=== PATIENT | male | born 1955 | race Caucasian/White ===

== ENCOUNTER 2023-02-26 15:08 | Outpatient (CLI) | payer MEDICARE | END 2023-02-26 15:09 | disposition home or self-care (01) | LOC: BICCT 15:08 | PROVIDERS: ATTEND Surgery | DX: M47.22 Other spondylosis with radiculopathy, cervical region (principal); Z98.890 Other specified postprocedural states | CPT/HCPCS: 72050; 72125 ==

== ENCOUNTER 2023-09-09 14:30 | Inpatient (IN) | payer MEDICARE ==
[2023-09-09 15:34] VITALS: BMI 27.6
[2023-09-16] MEDS ORDERED: Sodium Chloride 0.9% 100 ML ONE ×2 (08:53→12:49)
[2023-09-16] MEDS ORDERED: CEFAZOLIN 2 GM VIAL ONE ×2 (08:53→12:49)
[2023-09-16] MEDS ORDERED: fentaNYL PF 100 MCG/2 ML SYRINGE ONE (09:02)
[2023-09-16] MEDS ORDERED: Lidocaine 2% PF 5 ML VIAL ONE (09:02)
[2023-09-16] MEDS ORDERED: PROPOFOL 20 ML ONE (09:02)
[2023-09-16] MEDS ORDERED: Rocuronium Bromide 10 MG/ML (10ML VIAL) ONE (09:06)
[2023-09-16] MEDS ORDERED: Ondansetron PF 4 MG/2 ML Vial ONE (09:06)
[2023-09-16] MEDS ORDERED: Ketorolac Tromethamine 30 MG (1 mL) VIAL ONE (09:06)
[2023-09-16] MEDS ORDERED: Dexamethasone 20 MG/5 ML VIAL ONE (09:06)
[2023-09-16] MEDS ORDERED: ePHEDrine Sulfate 50 MG/10 ML VIAL ONE (09:20)
[2023-09-16] MEDS ORDERED: HYDROmorphone 2 MG/ML VIAL ONE (09:28)
[2023-09-16] MEDS ORDERED: SUGAMMADEX SODIUM 200 MG/2 ML VIAL ONE (10:30)
== END 2023-09-16 14:19 | disposition home or self-care (01) | DRG 472 ==
LOC: SURG A 09-16 07:10
PROVIDERS: ADMIT Neurological Surgery; ATTEND Neurological Surgery
PROC: 0RG10A0 Fusion of Cervical Vertebral Joint with Interbody Fusion Device, Anterior Approach, Anterior Column, Open Approach (ICD-10-PCS; principal; 2023-09-16)
PROC: 0RB30ZZ Excision of Cervical Vertebral Disc, Open Approach (ICD-10-PCS; 2023-09-16)
PROC: 01N10ZZ Release Cervical Nerve, Open Approach (ICD-10-PCS; 2023-09-16)
DX: M48.02 Spinal stenosis, cervical region (principal); M47.12 Other spondylosis with myelopathy, cervical region; G89.29 Other chronic pain; I10 Essential (primary) hypertension; Z88.8 Allergy status to other drugs, medicaments and biological substances; Z85.46 Personal history of malignant neoplasm of prostate; Z98.890 Other specified postprocedural states
CPT/HCPCS: C1713; J1100; J1170; J1885; J2001; J2405; J2704; J3490

== ENCOUNTER 2023-09-09 14:31 | Outpatient (CLI) | payer MEDICARE | END 2023-09-09 14:32 | disposition home or self-care (01) | LOC: LABBT 14:31 | PROVIDERS: ATTEND Neurological Surgery | DX: Z01.810 Encounter for preprocedural cardiovascular examination (principal); M47.812 Spondylosis without myelopathy or radiculopathy, cervical region | CPT/HCPCS: 93005; 93010 ==

== ENCOUNTER 2024-01-18 11:42 | Outpatient (CLI) | payer MEDICARE | END 2024-01-18 11:43 | disposition home or self-care (01) | LOC: BICULT 11:42 | PROVIDERS: ATTEND Nurse Practitioner Family | DX: S86.812A Strain of other muscle(s) and tendon(s) at lower leg level, left leg, initial encounter (principal); M25.462 Effusion, left knee | CPT/HCPCS: 76882 ==

== ENCOUNTER 2025-07-18 12:14 | Outpatient (CLI) | payer MEDICARE ==
[2025-07-18 13:53] LABS: #Basophils 0.03 10x3/uL (0.0-0.2); #Eosinophils 0.16 10x3/uL (0.0-0.7); #Monocytes 0.59 10x3/uL (0.11-0.59); #Neutrophils 3.24 10x3/uL (1.40-6.50); %Basophils 0.5 % (0.0-1.0); %Eosinophils 2.9 % (0.0-10.0); %Lymphocytes 26.7 % (21.0-51.0); %Monocytes 10.7 % (0.0-10.0); %Neutrophils 59.0 % (42.0-75.0); Hematocrit 42.9 % (42.0-52.0); Hemoglobin 13.2 g/dL (14.0-18.0); Mean Corpuscular Hemoglobin 25.6 pg (27.0-31.0); Mean Corpuscular Volume 83.1 fL (78.0-98.0); Platelet Count 195 10x3/uL (130-400); Red Blood Cell (RBC) Count 5.16 mill/uL (4.70-6.10); White Blood Cell (WBC) Count 5.50 10x3/uL (4.8-10.8)
[2025-07-18 14:14] LABS: ALT (SGPT) 26 U/L (Less than 45); AST (SGOT) 29 U/L (11-34); Albumin 4.0 g/dL (3.1-4.5); Alkaline Phosphatase 51 U/L (40-110); Anion Gap 11 mmol/L (10-20); BUN (Urea Nitrogen) 15 mg/dL (8.4-25.7); Bilirubin, Total 0.7 mg/dL (0.3-1.2); Calc. Creatinine Clearance 0 mL/min (70-130); Calcium 9.0 mg/dL (7.8-10.44); Carbon Dioxide 23 mmol/L (23-31); Chloride 107 mmol/L (98-107); Globulin 2.5 g/dL (2.4-3.5); Glucose 90 mg/dL (80-115); Potassium 4.2 mmol/L (3.5-5.1); Sodium 137 mmol/L (136-145)
[2025-07-18 14:16] LABS: INR-International Normal Ratio 1.1; Prothrombin Time 13.9 sec (12.0-14.7)
== END 2025-07-18 12:15 | disposition home or self-care (01) ==
LOC: LABBT 12:14
PROVIDERS: ATTEND Orthopaedic Surgery
DX: Z01.818 Encounter for other preprocedural examination (principal); M17.11 Unilateral primary osteoarthritis, right knee
CPT/HCPCS: 80053; 85025; 85610; 87081; 93005; 93010

== ENCOUNTER 2025-07-18 13:49 | Outpatient (CLI) | payer MEDICARE, OTHER | END 2025-07-18 13:50 | disposition home or self-care (01) | LOC: CT 13:49 | PROVIDERS: ATTEND Orthopaedic Surgery | DX: Z01.818 Encounter for other preprocedural examination (principal); M17.11 Unilateral primary osteoarthritis, right knee ==

== ENCOUNTER 2025-08-15 07:59 | Observation (INO) | payer MEDICARE ==
[2025-07-18 12:38] VITALS: BMI 29.2
[2025-08-15] MEDS ORDERED: Ropivacaine 0.5% HCl/PF (150 MG/30 ML VIAL) ONE (09:27)
[2025-08-15] MEDS ORDERED: Bupivacaine 0.25% HCL 30 ML VIAL ONE ×2 (09:37→15:29)
[2025-08-15] MEDS ORDERED: Tranexamic Acid 1,000 MG/10 ML VIAL ONE (09:45)
[2025-08-15] MEDS ORDERED: Ondansetron PF 4 MG/2 ML Vial IVP PRN (09:45)
[2025-08-15] MEDS ORDERED: HYDROcodone/Acetaminophen 10/325 mg Tablet PO PRN (09:45)
[2025-08-15] MEDS ORDERED: Ropivacaine 0.2% 550 ML 550 ML NERVE BLCK SCH (09:45)
[2025-08-15] MEDS ORDERED: Vancomycin HCl 1.5 GM VIAL ONE (09:48)
[2025-08-15] MEDS ORDERED: Lidocaine 1% (PF) 30 ML VIAL ONE (09:56)
[2025-08-15] MEDS ORDERED: fentaNYL PF 100 MCG/2 ML SYRINGE ONE ×2 (10:02→12:12)
[2025-08-15] MEDS ORDERED: Lidocaine 1% PF 5 ML VIAL ONE (10:03)
[2025-08-15] MEDS ORDERED: Ondansetron PF 4 MG/2 ML Vial ONE (10:03)
[2025-08-15] MEDS ORDERED: Lidocaine 2% 6 ML (Jelly) SYR ONE (10:04)
[2025-08-15] MEDS ORDERED: PROPOFOL 200 MG/20 ML VIAL ONE (11:00)
[2025-08-15] MEDS ORDERED: HYDROmorphone 0.5 MG/0.5 ML SYRINGE ONE ×3 (13:15→15:27)
[2025-08-15] MEDS: Ketorolac Tromethamine 30 MG (1 mL) VIAL IVP SCH (16:04)
[2025-08-15] MEDS: Aspirin 81 mg Enteric Coated Tablet PO SCH (20:23)
[2025-08-15] MEDS: HYDROcodone/Acetaminophen 10/325 mg Tablet PO PRN (20:25)
[2025-08-16 05:00] LABS: Hematocrit 37.1 % (42.0-52.0); Hemoglobin 11.5 g/dL (14.0-18.0); Mean Corpuscular Hemoglobin 25.5 pg (27.0-31.0); Mean Corpuscular Volume 82.3 fL (78.0-98.0); Platelet Count 167 10x3/uL (130-400); Red Blood Cell (RBC) Count 4.51 mill/uL (4.70-6.10); White Blood Cell (WBC) Count 13.08 10x3/uL (4.8-10.8)
[2025-08-16 08:06] VITALS: TEMP 97.7
[2025-08-16 11:18] VITALS: BP 123/70
== END 2025-08-16 12:55 | disposition home or self-care (01) ==
LOC: SDC 07:59 → SURG B 17:05
PROVIDERS: ADMIT Orthopaedic Surgery; ATTEND Orthopaedic Surgery
PROC: 0SRC0JZ Replacement of Right Knee Joint with Synthetic Substitute, Open Approach (ICD-10-PCS; principal; 2025-08-15)
PROC: 3E0T3BZ Introduction of Anesthetic Agent into Peripheral Nerves and Plexi, Percutaneous Approach (ICD-10-PCS; 2025-08-15)
DX: M17.0 Bilateral primary osteoarthritis of knee (principal); Z88.5 Allergy status to narcotic agent; Z88.8 Allergy status to other drugs, medicaments and biological substances
CPT/HCPCS: 0055T; 27447; 64448; 36415; 85027; A4306; C1713; C1776; C1889; J0169; J0665; J1100; J1171; J1885; J2003; J2405; J2704; J2795; J3010